=== PATIENT | female | born 1965 | race Caucasian/White ===

== ENCOUNTER 2023-01-13 06:17 | Day surgery (SDC) | payer OTHER, SELFPAY ==
[2022-11-25 12:02] VITALS: BMI 33.6
[2022-12-24 13:31] VITALS: BMI 76.5
[2023-01-13] MEDS: LACTATED RINGERS 1,000 ML 150 ML IV CONT (06:50)
--- NOTE | 2023-01-13 07:15 | WPDANESEPPF ---
Anes - Initial Pre Proc Eval Procedure: Operation Date: 01/13/23 08:00 Proposed Procedures p Diagnostic Colonoscopy - Alvin Orlando MD Date/Time: 01/13/23 07:15 Surgeon: Alvin Orlando MD Pre Op Diagnosis: History of Colon Polyps Patient Data Age: 57 Gender: F Height: 1.68 m Weight: 97.9 kg Allergies Allergy/AdvReac Type Severity Reaction Status Date / Time propoxyphene [From Darvon] Allergy Rash Verified 01/13/23 06:42 Home Medications Medication Instructions Recorded Confirmed Type cetirizine 10 mg tablet (Zyrtec) 10 mg PO DAILY 12/24/22 01/13/23 History omega-3 fatty acids 1 cap PO DAILY 12/24/22 01/13/23 History rosuvastatin 10 mg tablet 10 mg PO DAILY 12/24/22 01/13/23 History Patient hx anesthesia problems: post op nausea/vomiting Family hx anesthesia problems: other (slow to awaken) Results Review: All pre-operative results and documents have been reviewed as part of the pre-operative evaluation. [facility] Social History Social History Living arrangements: alone Spiritual care concerns: No Anes - Eval Final PreProcedure Day of Procedure 01/13/23 07:15 Patient weight: obese Heart: regular rate and rhythm Lungs: clear to auscultation Airway: Mallampati scale class II Neurological: alert and oriented Last oral intake: >/= 8 hours ASA classification: II Emergent: no Anesthetic plan: proceed Anesthesia type and monitoring: general GIVS and standard monitoring Results Review: All pre-operative results and documents have been reviewed as part of the pre-operative evaluation. Informed Consent: The patient's anesthetic plan and its attendant risks and benefits were discussed with the patient/family/POA. Questions were solicited and answers provided to the satisfaction of the patient/family/POA.
[2023-01-13 07:20] VITALS: BP 125/90; PULSE 76; RESP 16; TEMP 36.9; O2SAT 98
--- NOTE | 2023-01-13 07:58 | P.HP_ITS ---
History of Present Illness History of Present Illness Consent: Risks, benefits, and alternatives have been discussed and questions answered. Patient agrees to proceed with procedure. Chief complaint: History of Colon Polyps Narrative: Heydi Means is a 57 year old female wiht colon polyp 5 years ago Review of Systems Constitutional: Constitutional: Denies headache(s) and Denies weakness Eyes: Eyes: Denies blurry vision ENT: Reports Normal hearing present, Denies headache(s) and Denies neck pain Cardiovascular: Cardiovascular: Denies chest pain and Denies dyspnea Respiratory: Respiratory: Denies dyspnea Gastrointestinal: Gastrointestinal: Reports no additional gastrointestinal complaints Genitourinary: Genitourinary: Denies dysuria Musculoskeletal: Musculoskeletal: Denies neck pain Integumentary/Breasts: Skin/Breast: Denies dry skin Neurologic: Reports Normal hearing present, Denies headache(s) and Denies w eakness Psychiatric: Psychiatric: Denies anxiety Endocrine: Endocrine: Denies change in body appearance Hematologic/Lymphatic: Hematologic/Lymphatic: Denies easy bleeding Allergic/Immunologic: Allergic/Immunologic: Denies urticaria PMFSH Past Medical History Medical History (Updated 01/13/23 @ 07:59 by Alvin Orlando MD) Colon cancer screening Colon polyp Social History Social History Living arrangements: alone Spiritual care concerns: No Meds Home Medications and Allergies Home Medications Medication Instructions Recorded Confirmed Type cetirizine 10 mg tablet (Zyrtec) 10 mg PO DAILY 12/24/22 01/13/23 History omega-3 fatty acids 1 cap PO DAILY 12/24/22 01/13/23 History rosuvastatin 10 mg tablet 10 mg PO DAILY 12/24/22 01/13/23 History Allergies Allergy/AdvReac Type Severity Reaction Status Date / Time propoxyphene [From Darvon] Allergy Rash Verified 01/13/23 06:42 Vital Signs Vital Signs - 24 hr 01/13/23 07:20 Temperature 98.4 F Pulse Rate 76 Respiratory Rate 16 Blood Pressure 125/90 Pulse Oximetry 98 Oxygen Delivery Room Air Exam Const: General: comfortable and no acute distress HENMT: Face/Nose/Sinus: Normal nares present Eyes: General: appearance normal, both eyes and all related structures Neck: Neck: no JVD Resp: Auscultation: clear to auscultation bilaterally Cardio: Rate: regular rate Rhythm: regular rhythm GI: Inspection: non-distended GI Palp: Yes Soft to palpation Skin: General skin exam: normal color Neuro: General: gait normal Speech: normal speech Extrem: General: normal to inspection Psych: Mental Status: mental status grossly normal Assessment and Plan Assessment and plan (1) Colon cancer screening: Code(s): Z12.11 - Encounter for screening for malignant neoplasm of colon Status: Acute Assessment and Plan: colonoscopy (2) Colon polyp: Code(s): K63.5 - Polyp of colon Status: Acute
[2023-01-13 08:24] VITALS: BP 122/72; PULSE 63; RESP 16; O2SAT 97
[2023-01-13 08:34] VITALS: BP 118/78; PULSE 62; RESP 18; O2SAT 100
[2023-01-13 08:44] VITALS: BP 133/83; PULSE 60; RESP 17; O2SAT 100
--- NOTE | 2023-01-13 08:44 | WPDANESPN ---
Anes - Prog Note Post-Op Date/Time: 01/13/23 08:44 Cardiovascular status: normal Respiratory status: normal Airway patency: baseline Mental status: baseline Post-Op hydration status: normal Vital Signs: Last Vital Signs Temp 36.9 C 01/13/23 07:20 Pulse 63 01/13/23 08:33 Resp 16 01/13/23 08:33 BP 122/72 01/13/23 08:33 Pulse Ox 97 01/13/23 08:33 O2 Del Method Room Air 01/13/23 08:33 Pain Score (VAS): 0 I/O: Intake & Output 01/12/23 01/13/23 01/13/23 23:59 07:59 15:59 Intake Total 300 Balance 300 Patient Feedback: Patient satisfied with anesthetic care.
== END 2023-01-13 08:58 | disposition home or self-care (01) ==
PROVIDERS: PCP Internal Medicine; Visit Provider Internal Medicine Gastroenterology
PROC: 0DJD8ZZ Inspection of Lower Intestinal Tract, Via Natural or Artificial Opening Endoscopic (ICD-10-PCS; CPT 45378; principal; 2023-01-13 08:00)
DX: Z86.010 Personal history of colon polyps (principal); D12.0 Benign neoplasm of cecum
CPT/HCPCS: 45385

== ENCOUNTER 2023-01-13 07:00 | Outpatient (NON) | payer OTHER, SELFPAY | END 2023-01-13 07:01 | disposition home or self-care (01) | PROVIDERS: PCP Internal Medicine; Visit Provider Internal Medicine Gastroenterology | DX: Z12.11 Encounter for screening for malignant neoplasm of colon (principal) | CPT/HCPCS: 88305 ==

== ENCOUNTER 2024-10-07 11:45 | Outpatient (CLI) | payer OTHER, SELFPAY ==
--- NOTE | ~2024-10-07 | XR_ITS ---
EXAM/PROCEDURE: XR chest 2V - 10/07/2024 12:00 CDT HISTORY: 59 years old Female with Cough TECHNIQUE: Two view(s) of the chest. COMPARISON: None available. FINDINGS: LUNGS/ PLEURA: No focal consolidation. No appreciable pneumothorax or large pleural effusion. HEART/ MEDIASTINUM: Heart appears normal in size. BONES: No acute osseous abnormality. OTHER: Visualized upper abdomen is unremarkable. IMPRESSION: No acute process. Reviewed, dictated and finalized at location A. IMPRESSION: No acute process.
== END 2024-10-07 11:46 | disposition home or self-care (01) ==
PROVIDERS: PCP Internal Medicine; Visit Provider Internal Medicine
DX: R05.3 Chronic cough (principal)
CPT/HCPCS: 71046